=== PATIENT | female | born 1975 | race Two or more races ===

== ENCOUNTER → 2016-04-14 | Outpatient (CLI) | payer OTHER ==
[~2016-04-14] MED LIST: CYCLOBENZAPRINE5 MG PO; NABUMETONE750 MG PO; NAPROSYN500 MG PO; ULTRAM50 MG PO; ZOFRAN ODT4 MG PO
== END | disposition home or self-care (01) ==
LOC: CDC 09:36
DX: Z01.810 Encounter for preprocedural cardiovascular examination (principal); R00.1 Bradycardia, unspecified; N63 Unspecified lump in breast
CPT/HCPCS: 93000

== ENCOUNTER 2016-04-22 05:37 | Day surgery (SDC) | payer OTHER ==
[~2016-04-22] VITALS: Ht 167.6 cm; Wt 72.1 kg
[2016-04-22 06:45] VITALS: BP 111/70
[2016-04-22 10:58] VITALS: BP 97/56
[2016-04-22 11:53] VITALS: BP 103/66
[2016-04-22 13:13] VITALS: BP 103/66
== END 2016-04-22 13:18 | disposition home or self-care (01) ==
LOC: SDC 05:37
PROC: 0HBT3ZX Excision of Right Breast, Percutaneous Approach, Diagnostic (ICD-10-PCS; principal; 2016-04-22)
DX: D24.1 Benign neoplasm of right breast (principal)
CPT/HCPCS: 88307; J0131; J0690; J1100; J2250; J2405; J2765; J3010; S0020

== ENCOUNTER 2016-09-25 05:24 | Day surgery (SDC) | payer OTHER ==
[~2016-09-25] VITALS: Ht 167.6 cm; Wt 74.4 kg
[~2016-09-25 05:24] MED LIST changes: +DENAVIR1.5 GM TP
[2016-09-25 05:58] VITALS: BP 110/71
[2016-09-25 09:24] VITALS: BP 118/66
[2016-09-25 10:35] VITALS: BP 104/62
== END 2016-09-25 10:58 | disposition home or self-care (01) ==
LOC: SDC 05:24
DX: N84.0 Polyp of corpus uteri (principal); N93.8 Other specified abnormal uterine and vaginal bleeding; R00.1 Bradycardia, unspecified; E55.9 Vitamin D deficiency, unspecified; Z85.3 Personal history of malignant neoplasm of breast
CPT/HCPCS: 84702; 88305; J1100; J1170; J1885; J2250; J2405; J2765; J3010

== ENCOUNTER → 2016-11-09 | Outpatient (CLI) | payer OTHER ==
[~2016-11-09] VITALS: Ht 167.6 cm; Wt 74.0 kg
== END | disposition home or self-care (01) ==
LOC: AMB 09:18
PROC: 0DBN8ZX Excision of Sigmoid Colon, Via Natural or Artificial Opening Endoscopic, Diagnostic (ICD-10-PCS; principal; 2016-11-09)
PROC: 0DB68ZX Excision of Stomach, Via Natural or Artificial Opening Endoscopic, Diagnostic (ICD-10-PCS; principal; 2016-11-09)
DX: K29.70 Gastritis, unspecified, without bleeding (principal); B96.81 Helicobacter pylori [H. pylori] as the cause of diseases classified elsewhere; D12.5 Benign neoplasm of sigmoid colon; K59.00 Constipation, unspecified; K64.8 Other hemorrhoids; M51.26 Other intervertebral disc displacement, lumbar region; M41.9 Scoliosis, unspecified; E55.9 Vitamin D deficiency, unspecified; Z80.3 Family history of malignant neoplasm of breast; Z82.3 Family history of stroke; Z83.3 Family history of diabetes mellitus; Z80.8 Family history of malignant neoplasm of other organs or systems
CPT/HCPCS: 88305; 88342 TC; J2250; J3010

== ENCOUNTER 2017-07-06 12:46 | Emergency (ER) | payer OTHER ==
[~2017-07-06] VITALS: Ht 165.1 cm; Wt 69.9 kg
[2017-07-06 14:25] LABS: HEMOGLOBIN 11.2 G/DL (11.9-15.5); MCH 27.7 PG (29.0-34.0); MCHC 33.9 G/DL (30.0-36.0); MCV 81.7 FL (83-99); PLATELET COUNT 265 K/uL (156-360); RBC DIS.WIDTH-CV 13.8 % (11.8-14.6); RBC DIS.WIDTH-SD 41.1 % (39-53); RED BLOOD COUNT 4.04 M/uL (3.80-5.20); WHITE BLOOD COUNT 16.5 K/uL (4.1-10.2)
[2017-07-06 14:53] LABS: APPEARANCE BLOODY ((CLEAR)); BILIRUBIN NEGATIVE; BLOOD LARGE; COLOR RED ((YELLOW)); GLUCOSE (STRIP) NEGATIVE; KETONES 160; LEUKOCYTES MODERATE; NITRITE NEGATIVE; PH, URINE 8.5 (5-8); PROTEIN (STRIP) >2000; SPECIFIC GRAVITY 1.025 (1.000-1.030); UROBILINOGEN 0.2 MG/DL (0.2-1.0)
[2017-07-06 14:54] LABS: RED BLOOD CELLS TNTC /HPF (0-5); UCUL ADDED? YES
[2017-07-06] MEDS ORDERED: NORCO 5/3251 TABLET PO (15:45)
[2017-07-06 15:54] VITALS: BP 113/68
== END 2017-07-06 16:16 | disposition home or self-care (01) ==
LOC: EME 12:46
DX: O03.9 Complete or unspecified spontaneous abortion without complication (principal)
CPT/HCPCS: 76801; 81003; 84702; 85027; 86900; 86901; 87086; 99281; 99284